=== PATIENT | male | born 1995 | race Hispanic/Latino ===

== ENCOUNTER 2018-07-20 11:28 | Outpatient (CLI) | payer OTHER ==
--- NOTE | 2018-07-20 12:22 | RAD ---
XR Lumbar Spine Comp W Bending History: [M [age] Low [age] pain.] Comparison: None. Findings: There are 5 nonrib-bearing lumbar type vertebra. No acute fracture. No malalignment. Minimal degenerative disc space height loss at L4/L5 and L5/S1. No listhesis. No translation with flexion or extension. Facet joints are normal. No pars interarticul karoline defects. Impression: Relatively unremarkable examination of the lumbar spine.
== END 2018-07-20 11:29 | disposition home or self-care (01) ==
LOC: SCSRAD 11:28
PROVIDERS: ATTEND Family Medicine
DX: M46.1 Sacroiliitis, not elsewhere classified (principal)
CPT/HCPCS: 72100